=== PATIENT | male | born 1975 | race Caucasian/White ===

== ENCOUNTER → 2020-12-17 13:56 | Outpatient (REF) | payer BC, SELFPAY | LOC: ANHLAB 13:56 | PROVIDERS: PCP Family Medicine; Visit Provider Nurse Practitioner | DX: C44.519 Basal cell carcinoma of skin of other part of trunk (principal) | CPT/HCPCS: 88305 ==

== ENCOUNTER → 2021-03-03 08:41 | Outpatient (REF) | payer BC, SELFPAY | LOC: ANHLAB 08:41 | PROVIDERS: PCP Family Medicine; Visit Provider Nurse Practitioner | DX: C44.519 Basal cell carcinoma of skin of other part of trunk (principal) | CPT/HCPCS: 88305 ==

== ENCOUNTER → 2021-03-31 09:58 | Outpatient (REF) | payer BC, SELFPAY | LOC: ANHLAB 09:58 | PROVIDERS: PCP Family Medicine; Visit Provider Nurse Practitioner | DX: C44.519 Basal cell carcinoma of skin of other part of trunk (principal) | CPT/HCPCS: 88305; 88331; 88332 ==

== ENCOUNTER → 2022-12-23 14:59 | Outpatient (CLI) | payer BC, SELFPAY ==
--- NOTE | ~2022-12-23 | XR_ITS ---
EXAM: XR knee RT 3V DATE: 12/23/2022 15:28 HISTORY: M25.561 - Pain in right knee . COMPARISON: None available. FINDINGS: Normal mineralization. No fracture or dislocation. No lytic or blastic lesion. Lateral pat ellar subluxation. Moderate tricompartmental osteophytosis. Moderate volume knee joint fluid. Mild me dial joint space narrowing. No erosion or periosteal change. Soft tissues within normal limits. IMPRESSION: Moderate tricompartmental right knee osteoarthritis. Moderate right knee joint effusion. Reviewed, dictated and finalized at location K.
== END ==
PROVIDERS: PCP Family Medicine; Visit Provider Family Medicine
DX: M17.11 Unilateral primary osteoarthritis, right knee (principal)
CPT/HCPCS: 73562